=== PATIENT | female | born 1975 | race Two or more races ===

== ENCOUNTER 2021-10-26 16:10 | Inpatient (IN) | payer MEDICAID ==
[~2021-10-26] VITALS: Ht 160 cm; Wt 66.2 kg
--- NOTE | 2021-10-26 16:25 | NUR ---
BIBS C/O HEADACHE THAT STARTED AT 1000 TODAY THAT IS LOCATED ON THE BACK ON HER PAIN AND CHEST PAIN THAT COMES AND GOES SINCE AUGUST THAT SHE RATES 5/10. PT DENIES ANY CARDIAC HISTORY BUT STATED IT RUNS IN HER FAMILY. PT PROVIDED WITH WARM BLANKET FOR COMFORT. AWAITING MD MOORE.
--- NOTE | 2021-10-26 17:21 | NUR ---
BALJINDER Wisdom AC 20G. LABS DRAWN AND COLLECTED AT BEDSIDE.
[2021-10-26 18:04] LABS: BASOPHILS # (AUTO) 0.1 K/uL (0.0-0.2); BASOPHILS % (AUTO) 0.8 % (0.0-2.0); HEMATOCRIT 38 % (33-45); HEMOGLOBIN 12.7 g/dL (11.5-14.8); LYMPHOCYTES % (AUTO) 31.2 % (20.0-44.0); MEAN CORPUSCULAR HGB CONC 34 g/dl (31.0-36.0); MEAN CORPUSCULAR VOLUME 86 fL (82-100); MONOCYTES # (AUTO) 0.4 K/uL (0.1-1.30); MONOCYTES % (AUTO) 6.1 % (2.0-12.0); NEUTROPHILS # (AUTO) 3.8 K/uL (1.8-8.9); NEUTROPHILS % (AUTO) 60.9 % (43.0-81.0); PLATELET COUNT (AUTO) 299 K/uL (150-450); RED BLOOD CELL COUNT(AUTO) 4.39 MIL/uL (4.0-5.2); WHITE BLOOD COUNT (AUTO) 6.3 K/uL (4.3-11.0)
[2021-10-26 18:16] LABS: CARBON DIOXIDE 31 mmol/L (21-32); CHLORIDE 102 mmol/L (98-107); CREATININE 0.7 mg/dL (0.6-1.3); GLUCOSE 99 mg/dL (74-106); POTASSIUM 4.1 mmol/L (3.5-5.1); SODIUM SERUM 136 mmol/L (136-145); UREA NITROGEN, BLOOD 16 mg/dL (7-18)
[2021-10-26] MEDS ORDERED: IOHEXOL-350 100 ML VIAL IV ONE (18:21)
--- NOTE | 2021-10-26 18:26 | NUR ---
PT BEING TAKEN TO CT VIA BRENDA
[2021-10-26] MEDS ORDERED: IV NS 0.9% 1,000 ML BAG IV ONE (18:30)
[2021-10-26] MEDS ORDERED: ACETAMINOPHEN 325 MG TABLET PO ONE (18:30)
[2021-10-26] MEDS ORDERED: ACETAMINOPHEN 325 MG TABLET ONE (18:53)
--- NOTE | 2021-10-26 19:04 | NUR ---
COVID ANTIGEN SWAB DONE AND SENT TO THE LAB
--- NOTE | 2021-10-26 19:10 | NUR ---
MOVE SHEET SUBMITTED
--- NOTE | 2021-10-26 20:08 | NUR ---
PT ambulatory to restroom with a steady gait, continent. ADLS done. VSS
--- NOTE | 2021-10-26 21:16 | NUR ---
PERLA PEREZ METAL SMELTER AT PT'S BEDSIDE
[2021-10-26] MEDS: SIMVASTATIN 40 MG TABLET PO SCH (22:00)
--- NOTE | 2021-10-26 22:04 | NUR ---
TELE 322-2
--- NOTE | 2021-10-26 22:17 | NUR ---
REPORT GIVEN TO LAUREL
[2021-10-26 23:00] VITALS: BP 157/81
--- NOTE | 2021-10-26 23:08 | NUR ---
COGNOS BI ADMINISTRATORBUGGY LADLE TENDER NOTES PATIENT BROUGHT UP AT THIS TIME VIA STRETCHER. PATIENT IS AMBULATORY WITH STEADY GAIT. A/OX4. NO S/S OF APPARENT DISTRESS ON ROOM AIR. C/O 4/10 HEADACHE AT THIS TIME. PATIENT HAS INTACT SKIN. L. AC #20 G INTACT AND PATENT-- FLUSHED WITH NS. WISHES TO BE FULL CODE. PER PATIENT SHE IS UP TO DATE WITH HER VACCINATION -- FLU AND COVID. NEW ID BAND ON PATIENT. BELONGINGS CHECKED AND CHARTED. V/S FOLLOWS: BP: 157/81, HR-55, T-97.8, RR-20, AND SATURATING 99%. WILL FOLLOW THROUGH DOCTOR'S ORDERS.
--- NOTE | 2021-10-26 23:14 | NUR ---
PT TRANSPORTED TO [facility] ON MEDICAID BILLING CLERK PER [employer]S PROTOCOL. PT TRANSFERRED IN STABLE CONDITION.
--- NOTE | 2021-10-26 23:30 | NUR ---
PRINTER HELPER NOTE TELE MONITOR READING SINUS BABAK. PATIENT PASSED NURSING SWALLOW EVALUATION. MESSAGED PERLA PEREZ NP AND ORDERED CARDIAC DIET. PATIENT NIHSS SCORE = 0. NEURO EVALUATION NORMAL. WILL CONTINUE TO MONITOR. GIVEN SNACKS AT THIS TIME. BLOOD SUGAR 86.
[2021-10-26 23:36] VITALS: BP 157/81
--- NOTE | 2021-10-27 | NUR ---
MEDICAL RECORDS CUSTODIAN NOTE SCHEDULED 0 [employer] NON-ADMIN STILL GREYED OUT IN THE OMNICELL.
[2021-10-27] MEDS: BLOOD SUGAR DIAGNOSTIC 1 EACH STRIP IN SCH ×5 (00:10→21:33)
--- NOTE | 2021-10-27 01:00 | NUR ---
DATABASE REPORT WRITER NOTE- REASSESSMENT RECHECKED BP NOW 135/79 HR 60. PATIENT STATES RELIEF OF HEADACHE WELL. WILL CONTINUE TO MONITOR.
[2021-10-27 03:23] LABS: BASOPHILS # (AUTO) 0.1 K/uL (0.0-0.2); BASOPHILS % (AUTO) 1.4 % (0.0-2.0); EOSINOPHILS % (AUTO) 2.1 % (0.0-6.0); HEMATOCRIT 37 % (33-45); HEMOGLOBIN 12.6 g/dL (11.5-14.8); LYMPHOCYTES % (AUTO) 39.3 % (20.0-44.0); MEAN CORPUSCULAR HGB CONC 34 g/dl (31.0-36.0); MEAN CORPUSCULAR VOLUME 85 fL (82-100); MONOCYTES # (AUTO) 0.5 K/uL (0.1-1.30); MONOCYTES % (AUTO) 9.1 % (2.0-12.0); NEUTROPHILS # (AUTO) 2.4 K/uL (1.8-8.9); NEUTROPHILS % (AUTO) 48.1 % (43.0-81.0); PLATELET COUNT (AUTO) 284 K/uL (150-450); RED BLOOD CELL COUNT(AUTO) 4.37 MIL/uL (4.0-5.2); WHITE BLOOD COUNT (AUTO) 5.1 K/uL (4.3-11.0)
[2021-10-27 03:57] LABS: CALCIUM, SERUM 8.9 mg/dL (8.5-10.1); CREATININE 0.7 mg/dL (0.6-1.3); POTASSIUM 3.8 mmol/L (3.5-5.1)
[2021-10-27 04:03] VITALS: BP 140/79
--- NOTE | 2021-10-27 06:48 | NUR ---
MANAGER INTERMEDIATE NOTE BLOOD SUGAR 95.
--- NOTE | 2021-10-27 07:27 | NUR ---
INTELLIGENCE APPLICATIONS NOTE REPORT GIVEN TO ASHER FOR CONTINUITY OF CARE. NO SIGNIFICANT CHANGE. NEEDS ATTENDED.
--- NOTE | 2021-10-27 07:51 | NUR ---
TELE OPENING NOTES PT IS IN BED ASLEEP, EASY TO AROUSE. A/O X 4. NO S/SX OF ACUTE DISTRESS NOTED. NO SOB. BREATHING IS EVEN AND UNLABORED, TOLERATING WELL ON ROOM AIR. NO C/O PAIN. IV ACCESSLAC#20 PATENT AND INTACT. EXTERNAL VESSEL BUILDER READS SR 70. SAFETY MEASURES IN PLACE WITH BED LOCKED AND LOW WITH SIDE RAILS X2. CALL LIGHT IS WITHIN REACH. WILL CONTINUE TO MONITOR PATIENT THROUGHOUT SHIFT.
[2021-10-27] MEDS: ASPIRIN 81 MG TAB.CHEW PO SCH (08:17)
[2021-10-27 08:18] VITALS: BP 132/71
[2021-10-27 12:21] VITALS: BP 132/73
--- NOTE | 2021-10-27 13:58 | NUR ---
MRI BRAIN W/WO. TECH DESIREE NOTIFIED VIA TEXT
[2021-10-27 16:38] VITALS: BP 128/69
[2021-10-27] MEDS ORDERED: GADOTERATE MEGLUMINE 10 MMOL/20 ML VIAL IV ONE (16:53)
--- NOTE | 2021-10-27 18:37 | NUR ---
TELE CLOSING NOTES PT IS IN BED WITH AT BEDSIDE. NO S/SX OF ACUTE DISTRESS NOTED. NO SOB. BREATHING IS EVEN AND UNLABORED, TOLERATING WELL ON ROOM AIR. NO C/O PAIN. IV ACCESS LAC#20 PATENT AND INTACT. EXTERNAL AIRCRAFT ENGINE ASSEMBLER READS SR 60'S. SAFETY MEASURES IN PLACE WITH BED LOCKED AND LOW WITH SIDE RAILS X2. CALL LIGHT IS WITHIN REACH. ALL NEEDS MET THROUGHOUT SHIFT. WILL ENDORSE CONTINUITY OF CARE TO ONCOMING SHIFT.
--- NOTE | 2021-10-27 18:39 | NUR ---
RN NOTE MADE DR. ARGUETA AND DR. VALERIO AWARE OF MRI OF BRAIN RESULTS
[2021-10-27 20:00] VITALS: BP 129/75
--- NOTE | 2021-10-27 20:00 | NUR ---
DIRECTOR OF PEOPLE OPENING NOTE PATIENT AWAKE IN BED WITH SIGNIFICANT OTHER AT BEDSIDE, PT ALERT/ORIENTED X 4, PT ABLE TO MAKE NEEDS KNOWN. PT REPORTING 6/10 HEADACHE, REPORTED TO MARKETING DEVELOPMENT SPECIALIST MD WITH NEW ORDER FOR NORCO 10/325 MG PO Q6H PRN, ORDER CONFIRMED AND CARRIED OUT. PATIENT ON EXTERNAL SPOUTER READING SINUS BABAK, HR: 55. SAFETY MEASURES IN PLACE: CALL LIGHT WITHIN REACH, SIDE RAILS UP X 2, BED LOCKED IN LOW POSITION, TABLE WITHIN REACH. WILL CONTINUE TO MONITOR PATIENT
[2021-10-27] MEDS: HYDROCODONE/APAP 10/325MG TABLET PO PRN (20:17)
[2021-10-27] MEDS ORDERED: SIMVASTATIN 20 MG TABLET PO SCH (22:00)
[2021-10-28] VITALS: BP 117/70
[2021-10-28 04:00] VITALS: BP 133/76
[2021-10-28 06:37] LABS: BASOPHILS % (AUTO) 0.9 % (0.0-2.0); HEMATOCRIT 40 % (33-45); HEMOGLOBIN 13.4 g/dL (11.5-14.8); LYMPHOCYTES # (AUTO) 2.1 K/uL (0.8-4.8); LYMPHOCYTES % (AUTO) 38.9 % (20.0-44.0); MEAN CORPUSCULAR HGB CONC 33 g/dl (31.0-36.0); MEAN CORPUSCULAR VOLUME 86 fL (82-100); MONOCYTES # (AUTO) 0.5 K/uL (0.1-1.30); MONOCYTES % (AUTO) 8.6 % (2.0-12.0); NEUTROPHILS # (AUTO) 2.6 K/uL (1.8-8.9); NEUTROPHILS % (AUTO) 48.6 % (43.0-81.0); PLATELET COUNT (AUTO) 297 K/uL (150-450); RED BLOOD CELL COUNT(AUTO) 4.68 MIL/uL (4.0-5.2); WHITE BLOOD COUNT (AUTO) 5.3 K/uL (4.3-11.0)
--- NOTE | 2021-10-28 06:58 | NUR ---
CAFE ATTENDANT CLOSING NOTE PATIENT AWAKE IN BED, PT ALERT/ORIENTED X 4, PT ABLE TO MAKE NEEDS KNOWN. NO SIGNIFICANT CHANGES THROUGHOUT SHIFT, PT SLEPT WELL THROUGH THE NIGHT. PATIENT ON EXTERNAL OFFICE SERVICE COORDINATOR READING SINUS BABAK, HR: 54. PATIENT STABLE ON RA, NO S/S OF DISTRESS OR SOB NOTED, BREATHING EVEN AND UNLABORED. MEDICATIONS GIVEN ORDERED, PT NEEDS MET THROUGHOUT SHIFT. SAFETY MEASURES IN PLACE: CALL LIGHT WITHIN REACH, SIDE RAILS UP X 2, BED LOCKED IN LOW POSITION, TABLE WITHIN REACH. WILL ENDORSE TO DAY SHIFT NURSE FOR CONTINUITY OF CARE
[2021-10-28] MEDS: BLOOD SUGAR DIAGNOSTIC 1 EACH STRIP IN SCH ×3 (07:40→17:30)
--- NOTE | 2021-10-28 07:45 | NUR ---
TELE/RN OPENING NOTES RECEIVED PATIENT IN BED, ALERT AND ORIENTED X4, ABLE TO MAKE NEEDS KNOWN. STABLE ON ROOM AIR. NO DISCOMFORTS NOTED AT THIS TIME. ON TELEMONITOR WITH SINUS BABAK. IV ACCESS ON LEFT AC #20G IS INTACT AND PATENT ON SALINE LOCK. PATIENT IS AMBULATORY. SAFETY MEASURES IN PLACED: BED LOCKED ON LOWEST POSITION, SIDE RAILS UPX2, CALL LIGHT WITHIN EASY REACH. WILL CONTINUE TO MONITOR.
[2021-10-28] MEDS: ASPIRIN 81 MG TAB.CHEW PO SCH (09:00)
--- NOTE | 2021-10-28 09:01 | NUR ---
WITHHELD ASA DUE TO CT ANGIOGRAM PROCEDURE TODAY.
--- NOTE | 2021-10-28 09:10 | NUR ---
TELE/RN NOTES PATIENT IS ALERT AND ORIENTEDX3, ABLE TO MAKE NEEDS KNOWN. WAS PICKED UP BY STAFF FOR THE CT ANGIOGRAM PROCEDURE. ALL CONSENTS SIGNED.
[2021-10-28] MEDS ORDERED: CT SWABBABLE VALVE TRANS SET 1 EA INFUS.SET MC ONE (09:26)
[2021-10-28] MEDS ORDERED: methylPREDNISolone SOD SUCC 125 MG/2ML VIAL ONE (09:26)
[2021-10-28] MEDS ORDERED: IOHEXOL-350 100 ML VIAL IV ONE (09:26)
[2021-10-28] MEDS ORDERED: IV NS 0.9% 250 ML IV ONE (09:26)
[2021-10-28] MEDS ORDERED: METOPROLOL TARTRATE INJ 5 MG/5 ML AMPUL ONE (09:27)
[2021-10-28] MEDS ORDERED: NITROGLYCERIN 0.4 MG/TAB BOTTLE ONE (09:27)
[2021-10-28] MEDS ORDERED: NITROGLYCERIN 0.4 MG/TAB BOTTLE SL ONE (09:30)
[2021-10-28] MEDS ORDERED: METOPROLOL TARTRATE INJ 5 MG/5 ML AMPUL IVP PRN (09:30)
[2021-10-28 09:41] VITALS: BP 121/63
--- NOTE | 2021-10-28 10:30 | NUR ---
PATIENT IS BACK FROM CT ANGIOGRAM.
[2021-10-28] MEDS: HYDROCODONE/APAP 10/325MG TABLET PO PRN (11:11)
[2021-10-28 11:59] LABS: CALCIUM, SERUM 9.1 mg/dL (8.5-10.1); CREATININE 0.8 mg/dL (0.6-1.3); MAGNESIUM 2.6 mg/dL (1.8-2.4); PHOSPHORUS 5.4 mg/dL (2.5-4.9); POTASSIUM 5.2 mmol/L (3.5-5.1)
[2021-10-28] MEDS ORDERED: SIMV-46 PO (17:07)
[2021-10-28] MEDS ORDERED: ASPI-1169 PO (17:07)
[2021-10-28 17:48] VITALS: BP 114/67
--- NOTE | 2021-10-28 18:00 | NUR ---
DISCHARGE NOTES PATIENT IS ALERT AND ORIENTED X4, ABLE TO MAKE NEEDS KNOWN. AMBULATORY AND STABLE ON ROOM AIR. PATIENT IS MEDICALLY STABLE AND DT. CHENEY ORDERED DISCHARGE TO HOME FOR THE PATIENT. DISCHARGE PAPERS SIGNED, ALL BELONGINGS ACCOUNTED FOR. IV ACCESS DISCONTINUED. PATIENT WAS PICKED UP BY TO TAKE HOME.
== END 2021-10-28 18:20 | disposition home or self-care (01) | DRG 54 ==
LOC: ER 16:12 → TELE 22:07 → MED 22:07 → TELE 23:02 → MED 10-28 09:50
PROVIDERS: ADMIT Nurse Practitioner Acute Care; ATTEND Nurse Practitioner Acute Care
DX: G43.909 Migraine, unspecified, not intractable, without status migrainosus (principal); G45.9 Transient cerebral ischemic attack, unspecified; J84.10 Pulmonary fibrosis, unspecified; M94.0 Chondrocostal junction syndrome [Tietze]; E78.5 Hyperlipidemia, unspecified; Z20.822 Contact with and (suspected) exposure to COVID-19; Z82.49 Family history of ischemic heart disease and other diseases of the circulatory system; R91.1 Solitary pulmonary nodule; E87.5 Hyperkalemia; R93.89 Abnormal findings on diagnostic imaging of other specified body structures; I34.0 Nonrheumatic mitral (valve) insufficiency
CPT/HCPCS: 36415; 70450-TC; 70496-TC; 70498-TC; 70553-TC; 71045-TC; 75574; 80048-TC; 80061-TC; 82962-TC; 83735-TC; 84100-TC; 84484-TC; 84703-TC; 85025-TC; 85378-TC; 85730-TC; 87081-TC; 92526; 92611-TC; 93307-TC; 97116-TC; 97530-TC; A9575; C9803; G0378; J2930; J3490; J7030; J7050; Q9967